=== PATIENT | male | born 1960 | race Caucasian/White ===

== ENCOUNTER 2017-12-04 11:36 | Emergency (ER) | payer OTHER ==
[~2017-12-04] VITALS: Ht 188 cm; Wt 116.5 kg
[~2017-12-04 11:36] MED LIST: IBUP800T23 PO; TRAM50 PO
[2017-12-04 11:49] VITALS: BP 171/86; PULSE 85; RESP 16; TEMP 98.3; O2SAT 100
[2017-12-04] MEDS ORDERED: SODIUM CHLORIDE 0.9% FLUSH 10 ML FLUSH IVF PRN (12:00)
[2017-12-04 12:10] VITALS: BP 161/86; PULSE 79; RESP 16; O2SAT 96
--- NOTE | 2017-12-04 12:36 | RADRPT ---
EXAM DATE/TIME: 12/04/2017 12:23 [place] COMPARISON: CHEST SINGLE AP, October 26, 2014, 12:58. INDICATIONS : Chest pressure, rapid heartbeat, general weakness and shortness of breath. MEDICAL HISTORY : None. SURGICAL HISTORY : Inguinal hernia repair. ENCOUNTER: Initial ACUITY: 1 week PAIN SCORE: 2/10 LOCATION: Bilateral chest FINDINGS: A single view of the chest demonstrates the lungs to be symmetrically aerated without evidence of mas s, infiltrate or effusion. The cardiomediastinal contours are unremarkable. Osseous structures are intact. CONCLUSION: No acute disease. Constantin Plata MD FACR on December 04, 2017 at 12:34 Board Certified Radiologist. This report was verified electronically.
[2017-12-04] MEDS ORDERED: CETI-1 PO (12:39)
[2017-12-04 12:47] LABS: AUTOMATED NEUTROPHIL # 5.5 TH/MM3 (1.8-7.7); BASOPHIL % 0.5 % (0.0-2.0); EOSINOPHIL % 0.6 % (0.0-4.0); HEMATOCRIT 48.5 % (39.0-51.0); HEMOGLOBIN 16.8 GM/DL (13.0-17.0); LYMPH % 18.2 % (9.0-44.0); LYMPHOCYTE # 1.3 TH/MM3 (1.0-4.8); MEAN CELL VOLUME 89.1 FL (80.0-100.0); MEAN CORPUSCULAR HEMOGLOBIN 30.9 PG (27.0-34.0); MEAN CORPUSCULAR HGB CONC 34.7 % (32.0-36.0); MEAN PLATELET VOLUME 8.1 FL (7.0-11.0); MONO % 6.8 % (0.0-8.0); MONOCYTE # 0.5 TH/MM3 (0-0.9); NEUT % 73.9 % (16.0-70.0); PLATELET COUNT 197 TH/MM3 (150-450); RED BLOOD COUNT 5.44 MIL/MM3 (4.50-5.90); RED CELL DISTRIBUTION WIDTH 13.4 % (11.6-17.2); WHITE BLOOD COUNT 7.4 TH/MM3 (4.0-11.0)
[2017-12-04 12:51] VITALS: BP_SYST 156; BP_SYST 161; BP_DIAS 86; BP_DIAS 91; PULSE 80; PULSE 87; RESP 18; O2SAT 95
[2017-12-04 12:55] LABS: PROTHROMBIN TIME - PATIENT 10.4 SEC (9.8-11.6)
[2017-12-04 13:17] LABS: BICARBONATE 27.3 MEQ/L (21.0-32.0); BLOOD UREA NITROGEN 13 MG/DL (7-18); CALCIUM 9.3 MG/DL (8.5-10.1); CHLORIDE 105 MEQ/L (98-107); CREATININE 1.14 MG/DL (0.60-1.30); GLOMERULAR FILTRATION RATE 66 ML/MIN (>89); GLUCOSE,RANDOM 117 MG/DL (74-106); MAGNESIUM 2.2 MG/DL (1.5-2.5); SODIUM (NA) 138 MEQ/L (136-145)
[2017-12-04 13:25] LABS: TROPONIN I LESS THAN 0.02 NG/ML (0.02-0.05)
--- NOTE | 2017-12-04 13:57 | PD ---
HPI Chief Complaint: Chest Pain Time Seen by Provider: 12:41 Travel History International Travel<30 days: No Contact w/Intl Traveler<30days: No Traveled to known affect area: No History of Present Illness HPI 56-year-old male came to the emergency room with his for chest palpitations on and off for past 1 week. Patient says that he has been able to feel his heartbeat on and off. No history of syncope or chest pain. He has been little dizzy occasionally. Vital signs were stable. Patient says the last one was this morning. Each time it lasts for 10-15 minutes and then goes away. Patient says that he had something similar couple years ago when he saw a computer bookkeeper. Support Technician that all the blood work was fine and nothing to worry about. He was recommended to lose a few pounds. But instead patient has gained more weight since then. FORMERLY [facility] Past Medical History Narrative Medical List of his past medical, surgical, social and family history is reviewed from the nursing note. Medical History: Denies Significant Hx Diminished Hearing: No ?: Not Past Surgical History Other Surgery: Yes (INGUINAL HERNIA REPAIR) Social History Alcohol Use: Yes (2 BEERS WEEKLY ) Tobacco Use: No Substance Use: No Allergies-Medications (Allergen,Severity, Reaction): Coded Allergies: No Known Allergies (Unverified , 05/23/15) Comments No known drug allergies. Reported Meds & Prescriptions Reported Meds & Active Scripts Active Reported Zyrtec (Cetirizine HCl) 10 Mg Tablet 10 Mg PO DAILY PRN Narrative Medication List of his home medications reviewed from the nursing note. Review of Systems Except as stated in HPI: all other systems reviewed are Neg Cardiovascular: Positive: Palpitations Physical Exam Narrative GENERAL: Awake, alert, obese, no obvious distress SKIN: Focused skin assessment warm/dry. HEAD: Atraumatic. Normocephalic. EYES: Pupils equal and round. No scleral icterus. No injection or drainage. ENT: No nasal bleeding or discharge. Mucous membranes pink and moist. NECK: Trachea midline. No JVD. CARDIOVASCULAR: Regular rate and rhythm. No murmur appreciated. RESPIRATORY: No accessory muscle use. Clear to auscultation. Breath sounds equal bilaterally. GASTROINTESTINAL: Abdomen soft, non-tender, nondistended. Hepatic and splenic margins not palpable. MUSCULOSKELETAL: No obvious deformities. No clubbing. No cyanosis. No edema. NEUROLOGICAL: Awake and alert. No obvious cranial nerve deficits. Motor grossly within normal limits. Normal speech. PSYCHIATRIC: Appropriate mood and affect; insight and judgment normal. Data Data Last Documented VS Vital Signs Date Time Temp Pulse Resp B/P (MAP) Pulse Ox O2 Delivery O2 Flow Rate FiO2 12/04/17 12:51 80 18 156/91 (112) 95 Room Air 12/04/17 11:49 98.3 Orders Orders Electrocardiogram (12/04/17 11:54) Basic Metabolic Panel (Bmp) (12/04/17 11:54) Ckmb (Isoenzyme) Profile (12/04/17 11:54) Complete Blood Count With Diff (12/04/17 11:54) Magnesium (Mg) (12/04/17 11:54) Prothrombin Time / Inr (Pt) (12/04/17 11:54) Act Partial Throm Time (Ptt) (12/04/17 11:54) Troponin I (12/04/17 11:54) Chest, Single Ap (12/04/17 11:54) Ecg Monitoring (12/04/17 11:54) Bilateral Bp Monitoring (12/04/17 11:54) Iv Access Insert/Monitor (12/04/17 11:54) Oximetry (12/04/17 11:54) Oxygen Administration (12/04/17 11:54) Sodium Chloride 0.9% Flush (Ns Flush) (12/04/17 12:00) CKMB (12/04/17 12:15) CKMB% (12/04/17 12:15) Ed Discharge Order (12/04/17 13:46) Labs Laboratory Tests Test 12/04/17 12:15 White Blood Count 7.4 TH/MM3 Red Blood Count 5.44 MIL/MM3 Hemoglobin 16.8 GM/DL Hematocrit 48.5 % Mean Corpuscular Volume 89.1 FL Mean Corpuscular Hemoglobin 30.9 PG Mean Corpuscular Hemoglobin Concent 34.7 % Red Cell Distribution Width 13.4 % Platelet Count 197 TH/MM3 Mean Platelet Volume 8.1 FL Neutrophils (%) (Auto) 73.9 % Lymphocytes (%) (Auto) 18.2 % Monocytes (%) (Auto) 6.8 % Eosinophils (%) (Auto) 0.6 % Basophils (%) (Auto) 0.5 % Neutrophils # (Auto) 5.5 TH/MM3 Lymphocytes # (Auto) 1.3 TH/MM3 Monocytes # (Auto) 0.5 TH/MM3 Eosinophils # (Auto) 0.0 TH/MM3 Basophils # (Auto) 0.0 TH/MM3 CBC Comment DIFF FINAL Differential Comment Prothrombin Time 10.4 SEC Prothromb Time International Ratio 1.0 RATIO Activated Partial Thromboplast Time 25.5 SEC Blood Urea Nitrogen 13 MG/DL Creatinine 1.14 MG/DL Random Glucose 117 MG/DL Calcium Level 9.3 MG/DL Magnesium Level 2.2 MG/DL Sodium Level 138 MEQ/L Potassium Level 4.6 MEQ/L Chloride Level 105 MEQ/L Carbon Dioxide Level 27.3 MEQ/L Anion Gap 6 MEQ/L Estimat Glomerular Filtration Rate 66 ML/MIN Total Creatine Kinase 112 U/L Creatine Kinase MB 0.6 NG/ML Troponin I LESS THAN 0.02 NG/ML MDM Medical Decision Making Medical Screen Exam Complete: Yes Emergency Medical Condition: Yes Medical Record Reviewed: Yes Interpretation(s) Twelve-lead EKG was reviewed by me. Normal sinus rhythm, left axis deviation, nonspecific ST-T wave changes. Heart rate of 82 bpm. Differential Diagnosis Electrolyte abnormalities, ACS Narrative Course 1:55 PM blood test results of back and within acceptable limits. I discussed the test results with the patient and his and recommended that he should follow-up with his primary care and get a Holter monitoring. They understand and they're comfortable with that plan. Patient will be discharged home. Procedures EKG Prior to Arrival: No Diagnosis Primary Impression: Palpitations Referrals: Primary Care Physician Additional Instructions: Please follow-up with your primary care on Wednesday and have them set up for a Holter monitor. You should stay away from any kind of stimulants like caffeine or caffeinated beverages, nicotine, alcohol, [id number] cold and flu medications etc. Return to the ER if the condition worsens or any other new concerns. Med/Other Pt SpecificInfo: No Change to Meds Disposition: 01 DISCHARGE HOME Condition: Stable Matthew Lagunas MD Dec 04, 2017 13:56
--- NOTE | 2017-12-05 11:16 | EKG ---
Date Performed: 12/04/2017 Time Performed: 12:03:03 PTAGE: 56 years EKG: Sinus rhythm NORMAL ECG PREVIOUS TRACING : 10/26/2014 12.14 DOCTOR: Glen Duvall Interpretating Date/Time 12/05/2017 11:14:56
== END 2017-12-04 14:40 | disposition home or self-care (01) ==
LOC: NEPE 11:36
DX: R00.2 Palpitations (principal); R42 Dizziness and giddiness
CPT/HCPCS: 71045; 80048; 82550; 82552; 83735; 84484; 85025; 85610; 85730; 93005; 99284